=== PATIENT | female | born 1960 | race Caucasian/White ===

== ENCOUNTER 2022-11-15 10:13 | Day surgery (SDC) | payer BC ==
[~2022-11-15 10:13] MED LIST: Lactated Ringers 1,000 ML IV SCH
[2022-11-15] MEDS ORDERED: Lactated Ringers 1,000 ML IV ONE ×2 (10:36→12:16)
[2022-11-15 10:43] VITALS: RESP 16
[2022-11-15] MEDS ORDERED: Xylocaine-Mpf 2% 5 Ml Vial ONE (11:32)
[2022-11-15] MEDS ORDERED: DIPRIVAN 200 MG/20 ML IV ONE ×3 (11:32→12:12)
[2022-11-15] MEDS ORDERED: Versed 2 MG/2 ML Injection ONE (11:32)
[2022-11-15 12:53] VITALS: TEMP 97.3; O2SAT 97
[2022-11-15 13:18] VITALS: BP 151/87; PULSE 70
--- NOTE | 2022-11-15 17:01 | OP ---
SURGERY DATE: 11/15/2022 SURGERY TIME: 1136 PREOPERATIVE DIAGNOSIS: 1. SCREENING. POSTOPERATIVE DIAGNOSIS: 1. MILD HEMORRHOIDAL DISEASE. 2. BENIGN-APPEARING ANAL TAG. 3. COLON AND RECTAL POLYPS. 4. TORTUOUS COLON. 5. ASA II. PROCEDURE: 1. Colonoscopy with cold snare rectal polyp and cold forceps colon polyp. SURGEON: Dr. Rebecca Ritchie. ANESTHESIA: MAC. ESTIMATED BLOOD LOSS: Minimal, less than 10 cc. COMPLICATIONS: None. SPECIMENS: 1. Rectal polyp. 2. Rectosigmoid polyp. 3. Appendiceal orifice polyp. PROCEDURE DETAILS: This is a patient who presents for colonoscopy. She has had some prior abdominal symptoms. However, she was found to have chronic appendicitis which she says she had a laparoscopic appendectomy in May of this year and since then, from a gastrointestinal standpoint, she is doing well. She does have some pelvic and bladder issues which she is seeing specialists for also and she also is going to be getting a D&C next month. Today, she has no abdominal pain, no nausea, no vomiting, no bleeding, no chest pain, and no shortness of breath. She presents for screening colonoscopy. Risks, benefits, and alternatives have been discussed. Her H&P and consent have all been reviewed and confirmed. We then brought her back to the endoscopy suite. Laid in the left lateral decubitus position. A complete time-out was performed. First, a rectal exam was done. She does have mild hemorrhoidal disease as well as a small benign tag and a rectal polyp. This was verified after we inserted the scope. The scope was then gently introduced and advanced all the way to the level of the cecum. I did have to use some gentle abdominal pressure to help navigate the left colon tortuosity. Her colon is quite tortuous, but with gentle pressure, we were able to easily navigate the scope to the cecum. The appendiceal orifice as well as the ileocecal valve were visualized. The ileocecal valve was normal. The appendiceal orifice has a very small 2-3 mm sessile polyp which was taken in entirety with cold forceps. This site was hemostatic. The remainder of the cecum appears normal. The scope was then carefully withdrawn. We found 2 additional polyps, one in the rectosigmoid which was taken with cold forceps. This was about 2-3 mm. This was taken in entirety and hemostatic. Then, there was a distal rectal polyp which was taken with a cold snare. This was about 3-4 mm semipedunculated, taken in entirety, and again hemostatic. All polyps taken in entirety. All polyps retrieved and sent to pathology. All sites hemostatic. Outside of the tortuosity and the polyps, the remainder of the colon looked very healthy. Again, in the rectum, there were mild hemorrhoids and then the benign-appearing anal tag. No other masses or lesions of concern. She did have quite a tortuous colon. I will tentatively plan to do a colonoscopy in 5 years based on the 3 polyps. However, we will base our interval once we receive our final pathology results.
== END 2022-11-15 13:24 | disposition home or self-care (01) ==
LOC: SDC 10:13
PROVIDERS: ATTEND Surgery
DX: Z12.11 Encounter for screening for malignant neoplasm of colon (principal); K64.9 Unspecified hemorrhoids; K64.4 Residual hemorrhoidal skin tags; K63.5 Polyp of colon; K62.1 Rectal polyp
CPT/HCPCS: J2250; J2704